=== PATIENT | female | born 1960 | race Caucasian/White ===

== ENCOUNTER → 2017-02-18 | Outpatient (CLI) | payer BC ==
[~2017-02-18] MED LIST: ALBU0.08 INH; AMT50 PO; ASPI-435 PO; CLX/20 PO; LEVO125T4 PO; PRM625 PO
--- NOTE | 2017-02-21 08:02 | MAMMOGRAPHY REPORT ---
BILATERAL DIGITAL SCREENING MAMMOGRAM TOMOSYNTHESIS WITH CAD: 02/18/2017 CLINICAL HISTORY: Routine screening. Patient has no complaints. TECHNIQUE: Breast tomosynthesis in addition to standard 2D mammography was performed. Current study was also evaluated with a Computer Aided Detection (CAD) system. COMPARISON: Comparison is made to exams dated: 05/26/2016 mammogram, 02/09/2016 mammogram, 12/20/2014 m ammogram, 02/16/2013 mammogram, 02/16/2012 mammogram, and 02/09/2011 mammogram - [facility] nter. BREAST COMPOSITION: There are scattered areas of fibroglandular density in both breasts. FINDINGS: No suspicious masses, calcifications, or areas of architectural distortion are noted in ei ther breast. There has been no significant interval change compared to prior exams. Benign oil cysts , some of which are partially calcified, are again noted within the left upper outer quadrant. IMPRESSION: ACR BI-RADS CATEGORY 2: BENIGN There is no mammographic evidence of malignancy. A 1 year screening mammogram is recommended. The pa tient will receive written notification of the results. Approximately 10% of breast cancers are not detected with mammography. A negative mammographic report should not delay biopsy if a clinically suggestive mass is present. Lorena Heller M.D. /:02/18/2017 15:40:28 Supervising Producer: Kyara ALBRECHT(Kaushal)(Karlo)(BD), [facility] letter sent: Normal 1/2 BI-RADS Code: ACR BI-RADS Category 2: Benign
== END | disposition home or self-care (01) ==
LOC: C.MAMM 14:42
PROVIDERS: ATTEND Obstetrics & Gynecology
DX: Z12.31 Encounter for screening mammogram for malignant neoplasm of breast (principal)

== ENCOUNTER 2017-06-28 17:18 | Emergency (ER) | payer BC ==
[~2017-06-28] VITALS: Ht 160 cm; Wt 66.8 kg
[~2017-06-28 17:18] MED LIST changes: -LEVO125T4 PO; +LEVO125T5 PO
[2017-06-28 17:20] VITALS: BP 144/79; TEMP 36.4; Ht 160 cm; Wt 66.8 kg
--- NOTE | 2017-06-28 19:00 | DIAGNOSTIC IMAGING REPORT ---
CT OF THE HEAD WITHOUT CONTRAST CLINICAL HISTORY: fall; visual and hearing changes. COMPARISON STUDY: Head CT and MRI of the brain April 16, 2015. CT DOSE: 638.56 mGycm TECHNIQUE: Helical axial images of the head were obtained without IV contrast. Automated exposure control was utilized for the study. A dose lowering technique was utilized adhering to the principles of ALARA. FINDINGS: No acute intracranial hemorrhage, midline shift or mass effect is present. Ventricular system is normal. Basilar cisterns are patent. There are no extra-axial collections. Diaz-white differentiation is maintained. There are no findings to suggest acute dural sinus thrombosis or acute territorial infarct. There is no calvarial fracture. Visualized portions of the sinuses and the mastoid air cells are clear. IMPRESSION: 1. No acute intracranial findings. 2. No calvarial fracture. Electronically signed by: Mac Bernardo M.D. 06/28/2017 6:58 PM Dictated Date/Time: 06/28/2017 6:56 PM
[2017-06-28 19:18] VITALS: PULSE 74; O2SAT 98
--- NOTE | 2017-06-29 20:38 | EMERGENCY ROOM VISIT NOTE ---
ED Visit Note First contact with patient: 18:23 Chief Complaint: I fell and hit my head. History of Present Illness: Ms. Varma is a 57-year-old white female who ambulates into the ED accompanied by her complaining of striking her head after a fall. Patient reports approximately 45 minutes before she arrived in the emergency department she was walking her dog. She started chasing another dog and was tripped and fell to the ground. She reports before the fall she was not experiencing any lightheadedness or dizziness. At the time of the fall she reports she struck the left temporal area on the ground. At the time of the fall she reports she is did not have a loss of consciousness. Since the fall she reports she has been having left temporal area where she struck the ground, transiently after the fall she reports she had loss of hearing in the left ear and continuous since the fall she reports she feels like she is having "fog" over her visual boateng but no decreased in vision. Currently she describes her pain as a mild achy sensation. She rates her discomfort 2/10. The physical pain is specifically right in the postauricular area. The pain is nonradiating. The pain worsens slightly with palpation. She is not identified any alleviating factors related to the pain. She reports she has not taken any medication for pain prior to arrival at the hospital. She denies any dizziness, lightheadedness, difficulty speaking, difficulty swallowing, difficulty ambulating/coordinating body movements, neck pain, back pain, chest pain, shortness of breath, abdominal pain, nausea/vomiting, extremity weakness/numbness/tingling. Review of Systems: As noted above in history of present illness. All body systems were reviewed and found to be negative as noted above. Past Medical History: Status post section and hysterectomy. Current Medications: Aspirin, citalopram, levothyroxine, albuterol, Elavil, Premarin. Allergies to Medications: Epinephrine, lidocaine. Social History: Patient is currently employed; she feels safe in her home environment; she admits to alcohol use but denies tobacco use. Physical Examination: Vital Signs: Date Time Temp Pulse Resp B/P (MAP) Pulse Ox O2 Delivery O2 Flow Rate FiO2 06/28/17 19:18 74 18 98 06/28/17 17:20 36.4 57 20 144/79 99 Room Air GENERAL: 58-year-old female in mild distress due to symptoms, nontoxic-appearing , afebrile and hemodynamically stable. NEUROLOGICAL: Awake, alert and oriented to person, place and time. Answering questions appropriately and following commands. Normal gait. Good hand eye coordination. Romberg test negative. Pronator drift test negative. Cranial nerves II through XII grossly intact. Good short-term and long-term recall. Able to spell and count backwards. SKIN: Warm, dry and pink. No soft tissue trauma noted. HEENT: Atraumatic and normocephalic. Skull: No bony deformity, bony crepitus, ecchymosis with mild tenderness in the left posterior regular area. No raccoon' s eyes or justice signs. No drainage from ears and nostril; no hemotympanum. PERRLA. EOMI without nystagmus. Funduscopic examination is unremarkable with no signs of increased intracranial pressure. Sclera white and conjunctiva pink. No malocclusion. No intraoral trauma. Airway patent. Speech is normal and clear. Trachea midline. No jugular venous distention. BACK: No tenderness over the bony cervical, thoracic and lumbar spine. Full range of motion of the cervical spine. No CVA tenderness. THORAX: Lungs sounds are clear to auscultation and equal bilaterally with symmetrical chest wall. No crepitus, tenderness, subcutaneous air or deformities noted. ABDOMEN: Flat, soft and nontender. Positive bowel sounds in all quadrants. No guarding, rigidity or organomegaly. EXTREMITIES: Moves all extremities well on command and with purpose. All distal neurovascular statuses are intact and equal bilaterally. 5/5 muscle strength in all movements of the upper and lower extremities. ED Course: Patient is assessed as noted above. Patient's medication list was reviewed. Patient was offered pain medication and refused. CT Head: Was reviewed by myself and read by the radiologist showing no acute intracranial findings or skull fractures. Patient was educated about today's findings and instructed on her treatment plan ; she verbalized understanding and agreement with this plan. Clinical Impression: Mild closed head injury. Status post fall. Disposition: Patient discharged home in stable condition accompanied by her ; prior to departure she was reassessed and subjectively reported she was feeling the same. Plan: Comfort measures, head injury precautions, signs of worsening head injury were all discussed with the patient. Patient is encouraged to follow-up with family physician for recheck if no better in 4-5 days. Patient is encouraged return ED for worsening signs of head injury or any new/ concerning symptoms.
== END 2017-06-28 19:19 | disposition home or self-care (01) ==
LOC: C.EDB 17:19 → C.EDD 19:19
DX: S09.90XA Unspecified injury of head, initial encounter (principal); W01.0XXA Fall on same level from slipping, tripping and stumbling without subsequent striking against object, initial encounter; Y92.89 Other specified places as the place of occurrence of the external cause; Y93.K1 Activity, walking an animal; Z79.82 Long term (current) use of aspirin; Z79.899 Other long term (current) drug therapy

== ENCOUNTER 2017-09-12 17:32 | Emergency (ER) | payer OTHER ==
[~2017-09-12] VITALS: Ht 160 cm; Wt 69.0 kg
[~2017-09-12 17:32] MED LIST changes: -ASPI81TA28 PO; -LEVO100T7 PO; -[UNRECOGNIZED DRUG - CODE] PV
[2017-09-12 17:46] VITALS: TEMP 37; Ht 160 cm; Wt 69.0 kg
[2017-09-12] MEDS ORDERED: ASPI81TA28 PO (18:48)
[2017-09-12] MEDS ORDERED: CLX/20 PO (18:48)
[2017-09-12] MEDS ORDERED: [UNRECOGNIZED DRUG - CODE] PV (18:48)
[2017-09-12] MEDS ORDERED: LEVO100T7 PO (18:48)
--- NOTE | 2017-09-12 18:51 | EMERGENCY ROOM VISIT NOTE ---
History Report prepared by Yan: Ky Polk Under the Supervision of: Dr. Roger Henderson M.D. First contact with patient: 18:29 Chief Complaint: REFERRED BY DOCTOR Stated Complaint: CLOT IN POPLATELLA VEIN History of Present Illness The patient is a 57 year old female who presents to the Emergency Room with complaints of a constant blood clot in the popliteal vein that was noticed this morning. The patient states that a week ago she was skiing, and she had a crash and hurt her left knee. She was then put in an immobilizer and flew back from [place] on many long flights. She then saw her PCP, and she had an MRI done this morning, and she was told the results that she had an ACL and MCL tear, and she also has a possible popliteal vein clot. The patient additionally states that she hit her head during the fall, and she states that she was wearing a helmet. The patient notes that afterwards she was having some confusion and difficulty finding her words. She denies any headache, nausea, and vomiting. The patient reports that she has a history of a TIA, and she states that she takes a baby aspirin daily. Source of History: patient Onset: this morning Position: other (left popliteal vein) Quality: other (blood clot) Timing: constant Associated Symptoms: No headache, No nausea, No vomiting Note: Associated symptoms: Difficulty finding her words. Review of Systems See HPI for pertinent positives & negatives. A total of 10 systems reviewed and were otherwise negative. Past Medical & Surgical Medical Problems: (1) Bronchitis (2) Hypotension (3) Hypothyroidism (4) Kidney stone (5) Shingles Surgical Problems: (1) H/O: hysterectomy Family History Cancer Gallbladder disease Hypertension Lung disease Social History Smoking Status: Never Smoker Alcohol Use: none Drug Use: none Marital Status: Housing Status: lives with family Occupation Status: employed Current/Historical Medications Scheduled Aspirin (Aspirin Ec), 81 MG PO DAILY Citalopram (Citalopram Hydrobromide), 20 MG PO DAILY Estradiol Vaginal (Estradiol), 0.5-1 GM PV 2XWK Levothyroxine Sodium (Levothyroxine Sodium), 100 MCG PO DAILY Allergies Coded Allergies: Lidocaine (Verified Allergy, Unknown, UNKNOWN, 04/16/15) Epinephrine (Verified Adverse Reaction, Unknown, Rapid heart rate., 10/14/ 15) Physical Exam Vital Signs Date Time Temp Pulse Resp B/P (MAP) Pulse Ox O2 Delivery O2 Flow Rate FiO2 09/12/17 20:18 65 18 124/72 98 Room Air 09/12/17 17:46 37.0 69 18 126/68 97 Room Air Physical Exam GENERAL: Patient is in no acute distress. HEENT: No acute trauma, normocephalic atraumatic, mucous membranes moist, no nasal congestion, no scleral icterus. NECK: No stridor, no adenopathy, no meningismus, trachea is midline. LUNGS: Clear to auscultation bilaterally, no wheeze, no rhonchi, breath sounds equal. HEART: Without murmurs gallops or rubs, regular rate and rhythm. ABDOMEN: Soft, nontender, bowel sounds positive, no hernias, no peritonitis. EXTREMITIES: Her left leg is in a knee immobilizer. No significant pedal edema noted. Neurovascularly intact in the left lower extremity. Right lower extremity shows no edema. NEUROLOGIC: Oriented x 3, no acute motor or sensory deficits, no focal weakness. SKIN: No rash, no jaundice, no diaphoresis. Medical Decision & Procedures ER Provider Diagnostic Interpretation: Radiology results as stated below per my review and radiologist interpretation: LEFT LOWER EXTREMITY VENOUS DOPPLER HISTORY: poss left leg dvt noted on mri COMPARISON STUDY: None. FINDINGS: There is normal compressibility, flow, and augmentation within the left lower extremity deep venous system. A slightly complex 2.5 x 1.8 x 0.9 cm popliteal cyst. IMPRESSION: No DVT within the left lower extremity. Electronically signed by: Monty Barnes M.D. 09/12/2017 7:48 PM Dictated Date/Time: 09/12/2017 7:48 PM HEAD WITHOUT CONTRAST (CT) CLINICAL HISTORY: 57 years-old Female with fall, head trauma. Acute head injury status post fall TECHNIQUE: Multiple axial CT images of the head were obtained without contrast. A dose lowering technique was utilized adhering to the principles of ALARA. CT DOSE: 537.48 mGy.cm COMPARISON: Head CT 06/28/2017. FINDINGS: No acute intracranial hemorrhage, midline shift, intracranial mass, hydrocephalus, territorial ischemia or abnormal extra-axial collection. The calvarium is intact. The paranasal sinuses, mastoid air cells, and middle ear cavities are clear. IMPRESSION: No acute intracranial abnormality. The above report was generated using voice recognition software. It may contain grammatical, syntax or spelling errors. Electronically signed by: Benito Sampson M.D. 09/12/2017 7:07 PM Dictated Date/Time: 09/12/2017 7:06 PM Laboratory Results 09/12/17 18:50 Test 09/12/17 18:50 Prothrombin Time 10.2 SECONDS (9.0-12.0) Prothromb Time International Ratio 1.0 (0.9-1.1) Activated Partial Thromboplast Time 24.3 SECONDS (21.0-31.0) Partial Thromboplastin Ratio 0.9 Anion Gap 6.0 mmol/L (3-11) Est Creatinine Clear Calc Drug Dose 74.2 ml/min Estimated GFR () 98.6 Estimated GFR (Non- 85.1 BUN/Creatinine Ratio 18.4 (10-20) Calcium Level 9.0 mg/dl (8.5-10.1) Laboratory results reviewed by me. ED Course 1829: The patient was evaluated in room D5. A complete history and physical exam was performed. 2006: Reevaluated the patient. Discussed results and discharge instructions: She verbalized understanding and agreement. The patient is ready for discharge. Medical Decision Differential diagnoses include: DVT, superficial thrombophlebitis, intracranial bleeding, concussion, and coagulopathy. The patient presents with concern for a possible left leg popliteal DVT. There was an abnormality on her MRI and an ultrasound of the left leg was suggested. Patient does have a known injury to her left knee, she has an MCL and ACL tear. She has been in a knee immobilizer. She had struck her head and had lost consciousness with the skiing accident a week ago. There is no coagulopathy. No significant electrolyte abnormality or kidney failure. Ultrasound of the left leg does not show evidence for DVT. There was no cellulitis by exam. There was no left lower extremity neurovascular compromise. Brain CT showed no acute bleed or mass-effect. The patient was reassured by her testing. I did suggest a repeat ultrasound within a week. She can return to the ER if the left leg swelling increases. Patient was discharged to follow with her orthopedist. Head Trauma GCS Score: 15 Medication Reconcilliation Current Medication List: was personally reviewed by me Blood Pressure Screening Patient's blood pressure: Normal blood pressure Impression Primary Impression: Suspected DVT (deep vein thrombosis) Additional Impression: Head trauma Scribe Attestation The scribe's documentation has been prepared under my direction and personally reviewed by me in its entirety. I confirm that the note above accurately reflects all work, treatment, procedures, and medical decision making performed by me. Departure Information Dispostion Home / Self-Care Referrals Grzegorz Bsasett M.D. (PCP) Forms HOME CARE DOCUMENTATION FORM, IMPORTANT VISIT INFORMATION Patient Instructions My [facility] Additional Instructions repeat ultrasound in 1 week to be more certain there is no DVT see orthopedics for the knee no clot by ultrasound today as per radiology brain CT scan was ok today Problem Qualifiers
--- NOTE | 2017-09-12 19:08 | DIAGNOSTIC IMAGING REPORT ---
HEAD WITHOUT CONTRAST (CT) CLINICAL HISTORY: 57 years-old Female with fall, head trauma. Acute head injury status post fall TECHNIQUE: Multiple axial CT images of the head were obtained without contrast. A dose lowering technique was utilized adhering to the principles of ALARA. CT DOSE: 537.48 mGy.cm COMPARISON: Head CT 06/28/2017. FINDINGS: No acute intracranial hemorrhage, midline shift, intracranial mass, hydrocephalus, territorial ischemia or abnormal extra-axial collection. The calvarium is intact. The paranasal sinuses, mastoid air cells, and middle ear cavities are clear. IMPRESSION: No acute intracranial abnormality. The above report was generated using voice recognition software. It may contain grammatical, syntax or spelling errors. Electronically signed by: Benito Sampson M.D. 09/12/2017 7:07 PM Dictated Date/Time: 09/12/2017 7:06 PM
[2017-09-12 19:26] LABS: PTT PATIENT 24.3 SECONDS (21.0-31.0)
[2017-09-12 19:28] LABS: CREATININE 0.77 mg/dl (0.60-1.20)
--- NOTE | 2017-09-12 19:50 | DIAGNOSTIC IMAGING REPORT ---
LEFT LOWER EXTREMITY VENOUS DOPPLER HISTORY: poss left leg dvt noted on mri COMPARISON STUDY: None. FINDINGS: There is normal compressibility, flow, and augmentation within the left lower extremity deep venous system. A slightly complex 2.5 x 1.8 x 0.9 cm popliteal cyst. IMPRESSION: No DVT within the left lower extremity. Electronically signed by: Monty Barnes M.D. 09/12/2017 7:48 PM Dictated Date/Time: 09/12/2017 7:48 PM
[2017-09-12 20:18] VITALS: BP 124/72; PULSE 65; O2SAT 98
== END 2017-09-12 20:18 | disposition home or self-care (01) ==
LOC: C.EDB 17:33 → C.EDD 20:18
DX: S83.512D Sprain of anterior cruciate ligament of left knee, subsequent encounter (principal); S83.412D Sprain of medial collateral ligament of left knee, subsequent encounter; S06.9X9D Unspecified intracranial injury with loss of consciousness of unspecified duration, subsequent encounter; V00.328D Other snow-ski accident, subsequent encounter

== ENCOUNTER → 2017-09-12 | Outpatient (CLI) | payer OTHER ==
[~2017-09-12] MED LIST changes: +ASPI81TA28 PO; +LEVO100T7 PO; +[UNRECOGNIZED DRUG - CODE] PV
--- NOTE | 2017-09-12 11:16 | DIAGNOSTIC IMAGING REPORT ---
MRI OF THE LEFT KNEE CLINICAL HISTORY: Left knee injury several days ago. COMPARISON STUDY: No priors. TECHNIQUE: MRI of the left knee was performed utilizing proton density, T1, and T2-weighted sequences in the axial, sagittal, coronal planes. IV contrast was not administered for this examination. Note that interpretation is suboptimal without plain film correlate. FINDINGS: Menisci: The medial and lateral menisci are intact. Ligaments: There has been rupture of the anterior cruciate ligament. The posterior cruciate ligament is intact. There is thickening and irregularity of the medial collateral ligament. There is partial is tearing consistent with a grade 2 injury. Fluid is seen on both sides of the medial collateral ligament. The lateral collateral ligament complex is intact. Extensor mechanism: The extensor mechanism is intact. Hoffa's fat pad is normal in appearance. Articular cartilage and bone: There is minimal (less than 50%) fissuring of the articular cartilage along the medial patellar facet. The articular cartilage in the medial lateral compartments appears maintained. Tiny marginal osteophytes are observed. Bony contusion is identified within the lateral femoral condyle and the posterolateral tibial plateau. Contusion is also seen within the posterior aspect of the medial tibial plateau. There is no MRI evidence of fracture. A small bone island is incidentally noted within the medial femoral condyle. Joint effusion: There is a large joint effusion. Soft tissues: Soft tissue edema is present around the knee and in the popliteal fossa. The musculature surrounding the knee joint is normal in bulk and signal intensity. There is a filling defect questioned within the popliteal vein (axial image #1). IMPRESSION: 1. Rupture of the anterior cruciate ligament. 2. Findings consistent with a grade 2 injury of the medial collateral ligament. 3. No meniscal tear is clearly seen. The lateral collateral ligament complex and the posterior cruciate ligament are preserved. 4. Large joint effusion. 5. Bony contusions as above. 6. There is a filling defect questioned within the popliteal vein. Deep venous thrombosis is not excluded. Follow-up with a left lower extremity venous ultrasound is recommended for further assessment. Electronically signed by: Roger Waters M.D. 09/12/2017 11:15 AM Dictated Date/Time: 09/12/2017 11:08 AM
== END | disposition home or self-care (01) ==
LOC: C.MRIBC 09:47
PROVIDERS: ATTEND Internal Medicine
DX: S83.512A Sprain of anterior cruciate ligament of left knee, initial encounter (principal); S83.412A Sprain of medial collateral ligament of left knee, initial encounter; T14.8XXA Other injury of unspecified body region, initial encounter; X58.XXXA Exposure to other specified factors, initial encounter

== ENCOUNTER → 2017-09-21 | Outpatient (CLI) | payer OTHER ==
[~2017-09-21] MED LIST changes: -ALBU0.08 INH; -AMT50 PO; -ASPI-435 PO; +ASPI81TA28 PO; +LEVO100T7 PO; -LEVO125T5 PO; -PRM625 PO; +[UNRECOGNIZED DRUG - CODE] PV
== END | disposition home or self-care (01) ==
LOC: C.RDSM 19:24
PROVIDERS: ATTEND Physical Medicine & Rehabilitation Sports Medicine
DX: M25.562 Pain in left knee (principal)

== ENCOUNTER → 2018-02-07 | Outpatient (CLI) | payer OTHER | END | disposition home or self-care (01) | LOC: C.RDSM 10:42 | PROVIDERS: ATTEND Orthopaedic Surgery | DX: M79.644 Pain in right finger(s) (principal) ==

== ENCOUNTER → 2018-02-20 | Outpatient (CLI) | payer OTHER ==
--- NOTE | 2018-02-21 06:59 | MAMMOGRAPHY REPORT ---
BILATERAL DIGITAL SCREENING MAMMOGRAM TOMOSYNTHESIS WITH CAD: 02/20/2018 CLINICAL HISTORY: Routine screening. Patient has no complaints. TECHNIQUE: The study was acquired using full field digital technology and interpreted from soft copy. Breast tomosynthesis in addition to standard 2D mammography was performed. Current study was also ev aluated with a Computer Aided Detection (CAD) system. COMPARISON: Comparison is made to exams dated: 02/18/2017 mammogram, 05/26/2016 mammogram, 02/09/2016 m ammogram, 12/20/2014 mammogram, 02/16/2013 mammogram, and 02/16/2012 mammogram - [facility] enter. BREAST COMPOSITION: There are scattered areas of fibroglandular density in both breasts. FINDINGS: There are benign oil cysts in the left upper outer quadrant. No suspicious mass, architectu ral distortion or cluster of microcalcifications is seen. IMPRESSION: ACR BI-RADS CATEGORY 1: NEGATIVE There is no mammographic evidence of malignancy. A 1 year screening mammogram is recommended.( 019) The patient will receive written notification of the results. Some breast cancers are not detected with mammography. A negative mammographic report should not cristian y biopsy if a clinically suggestive mass is present. Sabi Brennan M.D. ay/:02/20/2018 16:48:32 Interventional Nurse: RT Gloria(Kaushal)(M), [facility] letter sent: Normal 1/2 BI-RADS Code: ACR BI-RADS Category 1: Negative
== END | disposition home or self-care (01) ==
LOC: C.MAMM 15:11
PROVIDERS: ATTEND Family Medicine
DX: Z12.31 Encounter for screening mammogram for malignant neoplasm of breast (principal)